=== PATIENT | male | born 1985 | race Caucasian/White ===

== ENCOUNTER 2016-08-09 20:28 | Emergency (ER) | payer OTHER ==
--- NOTE | ~2016-08-09 | CT2 ---
[facility] A Service of [facility] RADIOLOGY TEXT RESULTS PATIENT: MORGAN GRIJALVA LOCATION: [place] : [birth year] UNIT #: [id number] AGE: [address]: Porfirio Gibson DO SEX: M ORDER DR: [id number] [facility] [address] [place], [place] [address] [id number] E MR#: [id number] Acc #: [id number] NAME: MORGAN GRIJALVA : 1985 SEX: M STUDY DATE/TIME: 08/10/2016 0:22 UNIT: CFTX ROOM: STUDY DESCRIPTION: CT Abd and Pelv W Cont Attending Physician: Porfirio Gibson D.O. Ordering Physician: Porfirio Gibson D.O. Primary Care Physician: No Primary Care Physician MEDICAL IMAGING REPORT This report is preliminary unless electronic signature is present EXAM CT abdomen and pelvis with contrast. INDICATIONS Lower abdominal pain and rectal pain over the past week. PROCEDURE Contrast-enhanced CT of the abdomen and pelvis. This CT exam was performed with one or more of the following radiation dose reduction techniques: automatic exposure control, adjustment of mA and/or kV according to patient size, and iterative reconstruction. COMPARISON None. FINDINGS ABDOMEN WITH CONTRAST: Included lung bases are clear. The liver, spleen, kidney, adrenal gland, pancreas, gallbladder unremarkable. Moderate colonic stool. Appendix is normal. PELVIS WITH CONTRAST: No pelvic mass or fluid. There is a 1.9 cm ovoid abscess in the right paramedian gluteal cleft. IMPRESSION 1.9 cm ovoid abscess in the right paramedian gluteal cleft. No other acute findings in the abdomen or pelvis. Dictated by... Forest Mir M.D. THIS IS AN ELECTRONICALLY VERIFIED REPORT Forest Mir M.D. at 08/13/2016 7:19 AM [facility] A Service of [facility] RADIOLOGY TEXT RESULTS PATIENT: MORGAN GRIJALVA LOCATION: [place] : [birth year] UNIT #: [id number] AGE: [address]: Porfirio Gibson DO SEX: M ORDER DR: Elodia TD: 08/10/2016 09:11 JOB #: [id number] MEDICAL IMAGING REPORT Page 1 of 1 COPY
--- NOTE | ~2016-08-09 | CT71 ---
[facility] A Service of [facility] RADIOLOGY TEXT RESULTS PATIENT: MORGAN GRIJALVA LOCATION: [facility] : [birth year] UNIT #: [id number] AGE: [address]: Porfirio Gibson DO SEX: M ORDER DR: [id number] [place] [id number] [facility]. [place], [place] [address] [id number] E MR#: [id number] Acc #: [id number] NAME: MORGAN GRIJALVA : 1985 SEX: M STUDY DATE/TIME: 08/10/2016 0:19 UNIT: CFTX ROOM: STUDY DESCRIPTION: CT Head Wo Contrast Attending Physician: Porfirio Gibson D.O. Ordering Physician: Porfirio Gibson D.O. Primary Care Physician: No Primary Care Physician MEDICAL IMAGING REPORT This report is preliminary unless electronic signature is present EXAM CT head without contrast. INDICATIONS Headache and blurred vision with syncope over the past week. PROCEDURE Unenhanced CT head. This CT exam was performed with one or more of the following radiation dose reduction techniques: automatic exposure control, adjustment of mA and/or kV according to patient size, and iterative reconstruction. COMPARISON None. FINDINGS No acute hemorrhage, abnormal mass effect, extraaxial fluid collection or hydrocephalus. No depressed calvarial fracture. Paranasal sinuses and mastoid air cells are clear. IMPRESSION No acute intracranial findings. Dictated by... Forest Mir M.D. THIS IS AN ELECTRONICALLY VERIFIED REPORT Forset Mir M.D. at 08/13/2016 7:19 AM EED/george TD: 08/10/2016 08:51 JOB #: [id number] [facility] A Service of [facility] RADIOLOGY TEXT RESULTS PATIENT: MORGAN GRIJALVA LOCATION: [facility] : [birth year] UNIT #: [id number] AGE: [address]: Hottman,Porfirio M DO SEX: M ORDER DR: MEDICAL IMAGING REPORT Page 1 of 1 COPY
--- NOTE | ~2016-08-09 | CR63 ---
[facility] A Service of [facility] RADIOLOGY TEXT RESULTS PATIENT: MORGAN GRIJALVA LOCATION: CFTX : [birth year] UNIT #: [id number] AGE: [address]: Porfirio Gibson DO SEX: M ORDER DR: [id number] [facility] [address] [place] [address] [place], [place] [address] [id number] E MR#: [id number] Acc #: [id number] NAME: MORGAN GRIJALVA : 1985 SEX: M STUDY DATE/TIME: 08/09/2016 23:19 UNIT: [facility] ROOM: STUDY DESCRIPTION: CR Chest 2 View Attending Physician: Porfirio Gibson D.O. Ordering Physician: Porfirio Gibson D.O. Primary Care Physician: No Primary Care Physician MEDICAL IMAGING REPORT This report is preliminary unless electronic signature is present EXAM Two-view chest. INDICATIONS Dizziness and blurred vision for the past few months. PROCEDURE Frontal and lateral views of the chest. COMPARISON FINDINGS Heart size is within normal limits. Lungs are clear. No pleural fluid. No pneumothorax. IMPRESSION No active process. Dictated by... Forest Mir M.D. THIS IS AN ELECTRONICALLY VERIFIED REPORT Forest Mir M.D. at 08/13/2016 7:22 AM EED/shana TD: 08/10/2016 09:00 JOB #: [id number] MEDICAL IMAGING REPORT Page 1 of 1 COPY
--- NOTE | ~2016-08-09 | EKG ---
PATIENT: MORGAN GRIJALVA UNIT #: [id number] Ventricular Rate: 53 BPM Atrial Rate: 53 BPM P-R Interval: 142 ms QRS Duration: 74 ms Q-T Interval: 416 ms QTC Calculation(Bezet): 390 ms P [place]: 11 degrees Calculated R [place]: 37 degrees Calculated T [place]: 24 degrees Diagnosis Line: Sinus bradycardia Diagnosis Line: Otherwise normal ECG Diagnosis Line: No previous ECGs available Diagnosis Line: Confirmed by DANIS THOMAS MD ([id number]) on Diagnosis Line: 08/11/2016 1:28:13 PM INTERPRETING MD: BURAK
[2016-08-09 22:27] LABS: POC - CKMB <1.0 ng/mL (0.0-7.9); POC - TROPONIN <0.05 ng/mL (<=0.05)
[2016-08-09 22:31] LABS: BASOPHIL# 0.1 X10e3 (0-0.3); BASOPHIL% 0.6 % (0-2.5); DIFF IND NO; EOSINOPHIL# 0.3 X10e3 (0-0.7); HEMATOCRIT 42.2 % (38.0-50.0); HEMOGLOBIN 14.4 gm/dL (13.0-16.0); LYMPHOCYTE# 2.1 X10e3 (1.0-3.5); LYMPHOCYTE% 22.1 % (17.0-45.0); MEAN CORPUSCULAR HEMOGLOBIN 29.3 PG (28-34); MEAN PLATELET VOLUME 7.4 FL (6.5-11.5); MONOCYTE# 0.6 X10e3 (0-1.0); MONOCYTE% 6.5 % (3.0-12.0); NEUTROPHIL# 6.5 X10e3 (1.5-7.1); NEUTROPHIL% 67.8 % (40-75); PLATELET COUNT 227 X10e3 (140-420); RED CELL DISTRIBUTION WIDTH 13.4 % (11.0-15.5); WHITE BLOOD COUNT 9.6 X10e3 (4.0-10.5)
[2016-08-09 22:50] LABS: PARTIAL THROMBOPLASTIN TIME 24.2 SECONDS (23.5-31.3); PROTHROMBIN TIME (PATIENT) 10.5 SECONDS (9.6-11.5)
[2016-08-09 23:17] LABS: ALBUMIN SERUM 4.2 g/dL (3.5-5.0); ALKALINE PHOSPHATASE 51 U/L (32-92); ALT (SGPT) 16 U/L (10-40); AST (SGOT) 16 U/L (10-42); BILIRUBIN, DIRECT <0.1 mg/dL (0.0-0.2); BILIRUBIN,INDIRECT 0.8 mg/dL (0.0-0.9); BILIRUBIN,TOTAL 0.9 mg/dL (0.2-2.0); BLOOD UREA NITROGEN 18 mg/dL (9-23); CALCIUM SERUM 9.1 mg/dL (8.4-10.2); CARBON DIOXIDE 25 mmol/L (22-31); CHLORIDE 110 mmol/L (100-111); GLOM FILT RATE Estimated 99.2 mL/min (>60); GLUCOSE FASTING 86 mg/dL (70-110); POTASSIUM 4.5 mmol/L (3.5-5.1); PROTEIN TOTAL SERUM 7.2 g/dL (6.0-8.3); SODIUM 140 mmol/L (135-145)
[2016-08-10 01:31] LABS: URINE SOURCE CLEAN CATCH
[2016-08-10 01:45] LABS: AMPHETAMINE POS (NEG); BARBITURATES NEG (NEG); BENZODIAZEPINES NEG (NEG); COCAINE NEG (NEG); MARIJUANA NEG (NEG); OPIATES NEG (NEG); TRICYCLIC ANTIDEPRESSANTS NEG (NEG); U METHADONE NEG (NEG)
[2016-08-10 02:18] LABS: URINE APPEARANCE CLEAR; URINE BILIRUBIN NEG (NEG); URINE BLOOD NEG (NEG); URINE COLOR YELLOW; URINE GLUCOSE NEG (NEG); URINE KETONE NEG (NEG); URINE LEUKOCYTE ESTERASE NEG (NEG); URINE NITRATE NEG (NEG); URINE PH 5.5 (5-8); URINE PROTEIN NEG (NEG); URINE SPECIFIC GRAVITY 1.023 (1.003-1.035)
[2016-08-10 02:22] LABS: CULTURE INDICATED? NO
[2016-08-16] MEDS ORDERED: VYVANSE40 MG PO (09:52)
[2016-08-16] MEDS ORDERED: VIIBRYD40 MG PO (09:53)
[2016-08-16] MEDS ORDERED: GABAPENTIN600 MG PO (09:53)
[2016-08-16] MEDS ORDERED: SEROQUEL XR400 M1 DOB (09:54)
[2016-08-16] MEDS ORDERED: SEROQUEL XR50 MG PO (09:55)
[2016-08-17] MEDS ORDERED: HYDROCODON-ACE1 EAC7 PO (09:51)
== END 2016-08-10 03:41 | disposition home or self-care (01) ==
LOC: CED 20:28 → CFTX 21:36 → CED 08-10 03:41
PROVIDERS: Emergency Medicine
DX: K61.1 Rectal abscess (principal); R42 Dizziness and giddiness
CPT/HCPCS: 36415; 70450; 71020; 74177; 80048; 80076; 80307; 81003; 82553; 84484; 85025; 85610; 85730; 93005; 96361; 96374; 99284; J1885; Q9967

== ENCOUNTER → 2016-08-17 | Day surgery (SDC) | payer OTHER ==
[~2016-08-17] MED LIST: GABAPENTIN600 MG PO; HYDROCODON-ACE1 EAC7 PO; SEROQUEL XR400 M1 DOB; SEROQUEL XR50 MG PO; VIIBRYD40 MG PO; VYVANSE40 MG PO
--- NOTE | ~2016-08-17 | OR ---
Unit #: [id number] #: [id number] Patient: MORGAN WELDON [id number] [facility] [address] [place], [place] [address] [id number] MR#: [id number] NAME: MORGAN WELDON. ROOM: Date of Procedure: 08/17/2016 Admission Date: 08/17/2016 Surgeon: Jayden Gibbs M.D. : 1985 Attending Physician: Jayden Gibbs M.D. Primary Care Physician: Primary Care Physician No OPERATIVE REPORT PREOPERATIVE DIAGNOSIS Intergluteal abscess. POSTOPERATIVE DIAGNOSIS Intergluteal abscess. PROCEDURE PERFORMED Incision and drainage with packing in place. ANESTHESIA General endotracheal anesthesia. ESTIMATED BLOOD LOSS Less than 20 mL. INDICATIONS FOR PROCEDURE Mr. Weldon is a 30-year-old gentleman, who was sent to the office from the ER, complaining of severe buttock pain. He was having a hard time sitting and complained of severe pain in the right buttock. On CT scan, he had a 1.9 cm ovoid abscess to the right side of the gluteal cleft, but it was certainly not easily palpable in the office. However, it was readily apparent on the CT scan. He was so uncomfortable. It was hard to deeply palpate, so we opted to bring him in the operating room and do this under sedation. DESCRIPTION OF PROCEDURE The patient was admitted to [facility], positively identified, transported to the operating room, and after induction of general endotracheal anesthesia, he was placed in lithotomy position and received vancomycin IV. After being prepped and draped, I palpated, identified an area of fullness, and made an incision parallel to the intergluteal cleft on the right. I dissected down and there was an area of fluid collection deep in the buttock region that I was able to open with a Roz clamp. I then palpated widely and broke down all adhesions and irrigated the area. I packed the wound with 2-inch iodoform gauze. Hermila-Pad and fishnet pants were placed as dressing. Sponges and needle counts were correct x3. The patient was transported to recovery in stable condition. There was no family available at the end of the case to discuss the findings with. A friend is coming to pick him up after he is recovered from his anesthetic. Unit #: [id number] #: [id number] Patient: MORGAN WELDON Dictated by... Fidencio Bergeron/sincere TD: 08/17/2016 22:59 JOB #: [id number] OPERATIVE REPORT Page 1 of 1 X Jayden Gibbs MD PROCEDURE OPERATIVE NOTE
== END | disposition home or self-care (01) ==
LOC: CSUR 09:27
DX: L02.31 Cutaneous abscess of buttock (principal); I10 Essential (primary) hypertension; J45.909 Unspecified asthma, uncomplicated; Z87.01 Personal history of pneumonia (recurrent); Z79.891 Long term (current) use of opiate analgesic; Z79.899 Other long term (current) drug therapy; Z98.890 Other specified postprocedural states
CPT/HCPCS: J2250; J2765; J3010; J3370

== ENCOUNTER 2016-08-25 22:42 | Emergency (ER) | payer OTHER ==
[2016-08-25 23:59] LABS: BASOPHIL% 0.1 % (0-2.5); DIFF IND YES; EOSINOPHIL# 0.2 X10e3 (0-0.7); EOSINOPHIL% 0.9 % (0.0-7.0); HEMATOCRIT 38.9 % (38.0-50.0); HEMOGLOBIN 13.3 gm/dL (13.0-16.0); LYMPHOCYTE# 1.4 X10e3 (1.0-3.5); LYMPHOCYTE% 6.9 % (17.0-45.0); MEAN CELL VOLUME 84.4 FL (83-96); MEAN CORPUSCULAR HGB CONC 34.3 g/dL (30-36); MEAN PLATELET VOLUME 7.1 FL (6.5-11.5); MONOCYTE# 1.9 X10e3 (0-1.0); MONOCYTE% 9.6 % (3.0-12.0); NEUTROPHIL# 16.4 X10e3 (1.5-7.1); NEUTROPHIL% 82.5 % (40-75); PLATELET COUNT 231 X10e3 (140-420); RED CELL DISTRIBUTION WIDTH 13.1 % (11.0-15.5); WHITE BLOOD COUNT 19.9 X10e3 (4.0-10.5)
[2016-08-26 00:18] LABS: ALBUMIN SERUM 4.1 g/dL (3.5-5.0); ALKALINE PHOSPHATASE 51 U/L (32-92); ALT (SGPT) 32 U/L (10-40); AST (SGOT) 20 U/L (10-42); BILIRUBIN, DIRECT 0.1 mg/dL (0.0-0.2); BILIRUBIN,INDIRECT 0.5 mg/dL (0.0-0.9); BILIRUBIN,TOTAL 0.6 mg/dL (0.2-2.0); BLOOD UREA NITROGEN 16 mg/dL (9-23); BUN/CREATININE RATIO 14.54; CALCIUM SERUM 8.7 mg/dL (8.4-10.2); CARBON DIOXIDE 21 mmol/L (22-31); CHLORIDE 104 mmol/L (100-111); CREATININE SERUM 1.1 mg/dL (0.6-1.4); GLOM FILT RATE Estimated 88.4 mL/min (>60); GLUCOSE FASTING 103 mg/dL (70-110); POTASSIUM 3.7 mmol/L (3.5-5.1); PROTEIN TOTAL SERUM 7.7 g/dL (6.0-8.3); SALICYLATE <4.0 mg/dL; SODIUM 131 mmol/L (135-145)
[2016-08-26 00:19] LABS: ACETAMINOPHEN <10 ug/mL; ALCOHOL BLOOD <5 mg/dL (0)
[2016-08-26 00:28] LABS: PLATELET ESTIMATE NORMAL (NORMAL); RBC NORMAL YES
[2016-08-26 01:16] LABS: URINE SOURCE CLEAN CATCH
[2016-08-26 01:29] LABS: CULTURE INDICATED? NO; URBCS1 AUWI NEG /[HPF] (0-2); URINE APPEARANCE CLEAR; URINE BILIRUBIN NEG (NEG); URINE BLOOD NEG (NEG); URINE COLOR YELLOW; URINE GLUCOSE NORM (NEG); URINE KETONE NEG (NEG); URINE LEUKOCYTE ESTERASE NEG (NEG); URINE NITRATE NEG (NEG); URINE PROTEIN NEG (NEG); URINE UROBILINOGEN NORM (NEG)
[2016-08-26 01:49] LABS: AMPHETAMINE NEG (NEG); BARBITURATES NEG (NEG); BENZODIAZEPINES NEG (NEG); COCAINE NEG (NEG); MARIJUANA NEG (NEG); OPIATES POS (NEG); TRICYCLIC ANTIDEPRESSANTS POS (NEG); U METHADONE NEG (NEG)
== END 2016-08-26 01:19 | disposition home or self-care (01) ==
LOC: CED 22:42
PROVIDERS: Emergency Medicine
DX: R42 Dizziness and giddiness (principal); F17.200 Nicotine dependence, unspecified, uncomplicated; D72.829 Elevated white blood cell count, unspecified; Z98.890 Other specified postprocedural states
CPT/HCPCS: 36415; 80048; 80076; 80307; 81003; 82947; 85025; 96360; 99284; G0480